=== PATIENT | male | born 1955 | race Caucasian/White ===

== ENCOUNTER → 2023-10-04 18:31 | Outpatient (REF) | payer MEDICARE, SELFPAY | LOC: PAVMRI 18:31 | PROVIDERS: ATTENDING PHYSICIAN Orthopaedic Surgery; FAMILY PHYSICIAN Internal Medicine | DX: M54.50 Low back pain, unspecified (principal); Z98.890 Other specified postprocedural states; M43.16 Spondylolisthesis, lumbar region | CPT/HCPCS: 72148 ==

== ENCOUNTER → 2023-12-24 13:31 | Outpatient (REF) | payer MEDICARE, SELFPAY ==
[2023-12-24 14:05] VITALS: BP 146/97; BP_SYST 74
[2023-12-24 14:12] LABS: INR 1.15; PT 14.5 Sec (11.4-14.6)
[2023-12-24 15:00] VITALS: BP 147/88
== END ==
LOC: RADI 13:31
PROVIDERS: ATTENDING PHYSICIAN Orthopaedic Surgery; FAMILY PHYSICIAN Internal Medicine
DX: M54.50 Low back pain, unspecified (principal); D68.8 Other specified coagulation defects
CPT/HCPCS: 36415; 62323; 85610